=== PATIENT | female | born 1985 | race Caucasian/White ===

== ENCOUNTER 2017-03-23 09:32 | Outpatient (CLI) | payer BC ==
--- NOTE | 2017-03-23 12:12 | ULT ---
OB ULTRASOUND: Date: 03-23-17 History: Positive . Evaluate anatomy. FINDINGS: There is a single intrauterine gestation in cephalic presentation. Cardiac doppler demonstrates heart tones with a heart rate of 155 beats/minute. The placenta is located posteriorly and is low lying versus marginal placenta previa. Cervical length measures 3.3 cm. Subjectively, there is a normal amount of amniotic fluid. measurements: BPD 3.83 cm 17 weeks 5 days HC 14.41 cm 17 weeks 4 days AC 13.37 cm 18 weeks 6 days FL 2.49 cm 17 weeks 4 days The estimated gestational age by ultrasound is 17 weeks 5 days, with an VANESSA of 5-3-18. Gestational ag e by the last menstrual period is 18 weeks 1 day. Estimated weight is 226 grams (8 oz). This represents 45th percentile for weight. Cerebellum and visualized portions of the spine demonstrate a normal sonographic appearance. Th ere is probably four-chamber heart although this is difficult to definitely evaluate. facial st ructures are mostly obscured due to positioning. The stomach and bilateral kidneys demonstrate a normal sonographic appearance. There is a normal cord insertion. Definite three vessel cord is not delineated. Urinary bladder is also decompressed and not well evaluated on this exam. Otherwise, no d efinitive anomalies are appreciated. IMPRESSION: 1. Low lying versus marginal placenta previa. Follow up evaluation in 4-6 weeks is recommended. 2. Single intrauterine gestation in cephalic presentation with heart tones documented. Estimate d gestational age by ultrasound is 17 weeks 5 days with an VANESSA 5-3-18. 3. Estimated weight is 226 grams (8 oz). 4. No definite anomalies are seen. Some of the anatomical structures are not well evaluat ed as described above. POS: [facility]
== END 2017-03-23 09:33 | disposition home or self-care (01) ==
LOC: ULT 09:32
PROVIDERS: ATTEND Family Medicine
DX: Z34.92 Encounter for supervision of normal pregnancy, unspecified, second trimester (principal); Z3A.17 17 weeks gestation of pregnancy
CPT/HCPCS: 76805

== ENCOUNTER 2017-05-20 10:28 | Outpatient (CLI) | payer BC | END 2017-05-20 10:29 | disposition home or self-care (01) | LOC: BICULT 10:28 | PROVIDERS: ATTEND Family Medicine | DX: O44.42 Low lying placenta NOS or without hemorrhage, second trimester (principal); Z3A.25 25 weeks gestation of pregnancy | CPT/HCPCS: 76816 ==

== ENCOUNTER 2017-08-10 15:24 | Inpatient (IN) | payer BC ==
[~2017-08-10 15:24] MED LIST: Bupivacaine PF 0.5% 30 ML VIAL ONE
[2017-08-10] MEDS ORDERED: Acetaminophen 500 MG TAB PO PRN (16:11)
[2017-08-10] MEDS ORDERED: Ondansetron HCl/PF 4 MG/2 ML Vial IVP PRN (16:11)
[2017-08-10] MEDS ORDERED: LR / Pitocin 40 units/1000 ml 1,000 ML IV PRN (16:11)
[2017-08-10] MEDS ORDERED: Promethazine HCl 25 MG/ML VIAL IM PRN (16:11)
[2017-08-10] MEDS ORDERED: Ibuprofen 800 MG TAB PO PRN (16:11)
[2017-08-10] MEDS ORDERED: Misoprostol 200 MCG TAB PR PRN (16:11)
[2017-08-10] MEDS ORDERED: Acetaminophen/Codeine 30-300mg Tablet PO PRN (16:11)
[2017-08-10] MEDS ORDERED: Lidocaine 1% (PF) 30 ML VIAL SC PRN (16:11)
[2017-08-10 16:48] VITALS: BMI 35.2
[2017-08-10 17:33] LABS: Hemoglobin 13.8 g/dL (12.0-16.0); Mean Corpuscular HGB CONC 35.1 g/dL (32.0-36.0); Mean Corpuscular Hemoglobin 31.7 pg (27.0-31.0); Mean Corpuscular Volume 90.2 fl (81.0-99.0); Mean Platelet Volume 6.3 fL (7.4-10.4); Platelet Count 210 thou/uL (130-400); Red Blood Cell (RBC) Count 4.35 mill/uL (4.20-5.40); White Blood Cell (WBC) Count 9.8 thou/uL (4.8-10.8)
[2017-08-10 18:14] LABS: HBSAg Index 0.16 S/CO (0-0.99); Hep B Surf Ag Non-Reactive S/CO (NonReactive)
[2017-08-10 18:15] LABS: Syphilis Antibody Nonreactive (Nonreactive); Syphilis Antibody Index 0.04 S/CO (<1.00 Non-Reactive)
[2017-08-10] MEDS ORDERED: LR 500 ML/Oxytocin 10 units 500 ML IVPB SCH (22:15)
[2017-08-10] MEDS: Lactated Ringer's 1,000 ML IV SCH (23:10)
[2017-08-11] MEDS ORDERED: Bupivacaine 0.5% 20 ML, fentaNYL Citrate/PF 400 MCG in Sodium Chloride 0.9% 72 ML EPIDURAL SCH (03:30)
[2017-08-11] MEDS ORDERED: Ondansetron HCl/PF 4 MG/2 ML Vial IVP PRN ×2 (03:53→09:09)
[2017-08-11] MEDS ORDERED: ePHEDrine/0.9% NaCl/PF SYRINGE 50 mg/10 ml SLOW IVP PRN (03:53)
[2017-08-11] MEDS ORDERED: Naloxone HCl 0.4 mg/ml Vial IVP PRN ×2 (03:53)
[2017-08-11] MEDS ORDERED: Acetaminophen 325 MG TAB PO PRN (03:53)
[2017-08-11] MEDS ORDERED: Eucerin (Mineral Oil/Petrolatum,White) 30 gm Jar TOP PRN (03:53)
[2017-08-11] MEDS ORDERED: Lactated Ringer's 500 ML IV PRN (03:53)
[2017-08-11] MEDS ORDERED: Promethazine HCl 25 MG/ML VIAL IM PRN (03:53)
[2017-08-11] MEDS ORDERED: diphenhydrAMINE 50 MG/ML VIAL IVP PRN (03:53)
[2017-08-11] MEDS: Lactated Ringer's 1,000 ML IV SCH (03:57)
[2017-08-11] MEDS ORDERED: Fentanyl 4mcg/Marcaine 0.1% Cassette 100 ML EPIDURAL SCH (04:00)
[2017-08-11] MEDS ORDERED: Communication Order-Pharmacy FS SCH (04:00)
[2017-08-11] MEDS ORDERED: Lanolin Ointment 7 GM TUBE TOP PRN (09:09)
[2017-08-11] MEDS ORDERED: LR / Pitocin 40 units/1000 ml 1,000 ML IV SCH (09:09)
[2017-08-11] MEDS ORDERED: Benzocaine/Menthol 20-0.5% 60 ML CAN TOP PRN (09:09)
[2017-08-11] MEDS ORDERED: diphenhydrAMINE 25 MG CAP PO PRN (09:09)
[2017-08-11] MEDS ORDERED: Bisacodyl 10 MG SUPP PR PRN (09:09)
[2017-08-11] MEDS ORDERED: Preparation H Ointment 28 GM TUBE PR PRN (09:09)
[2017-08-11] MEDS ORDERED: Milk Of Magnesia 30 ML UDCUP PO PRN (09:09)
[2017-08-11] MEDS ORDERED: Prenatal Vitamin 1 TAB PO SCH (09:30)
[2017-08-11] MEDS ORDERED: Ferrous Sulfate 325 MG TAB PO SCH (09:30)
[2017-08-11] MEDS ORDERED: Docusate Calcium (SURFAK) 240 MG CAP PO SCH ×2 (09:30)
[2017-08-11] MEDS: Ibuprofen 800 MG TAB PO SCH ×2 (13:59→20:48)
[2017-08-11] MEDS: Ferrous Sulfate 325 MG TAB PO SCH (18:29)
[2017-08-11] MEDS: Docusate Calcium (SURFAK) 240 MG CAP PO SCH ×2 (20:48)
[2017-08-12] MEDS: Ibuprofen 800 MG TAB PO SCH (05:41)
[2017-08-12 05:50] VITALS: TEMP 98.3
[2017-08-12 08:07] VITALS: BP 98/65
[2017-08-12] MEDS: Ferrous Sulfate 325 MG TAB PO SCH (08:26)
[2017-08-12] MEDS: Docusate Calcium (SURFAK) 240 MG CAP PO SCH ×2 (08:27)
[2017-08-12] MEDS ORDERED: Prenatal Vitamin 1 TAB PO SCH (09:00)
== END 2017-08-12 10:30 | disposition home or self-care (01) | DRG 775 ==
LOC: L&D/OP 15:24 → L&D 15:30 → EDSTATUS 16:11 → L&D 17:01 → 3SW 08-11 11:10
PROVIDERS: ADMIT Family Medicine; ATTEND Family Medicine
PROC: 10E0XZZ Delivery of Products of Conception, External Approach (ICD-10-PCS; principal; 2017-08-11)
PROC: 3E0334Z Introduction of Serum, Toxoid and Vaccine into Peripheral Vein, Percutaneous Approach (ICD-10-PCS; 2017-08-11)
DX: O34.219 Maternal care for unspecified type scar from previous cesarean delivery (principal); Z37.0 Single live birth; Z3A.38 38 weeks gestation of pregnancy
CPT/HCPCS: 36415; 51702; 85027; 85461; 86780; 87340; 90384; 96372; J2001; J3010; J3490; J7050; J7120; S0020

== ENCOUNTER 2017-12-20 09:05 | Outpatient (CLI) | payer BC | END 2017-12-20 09:06 | disposition home or self-care (01) | LOC: BICRAD 09:05 | PROVIDERS: ATTEND Chiropractor | DX: M54.5 Low back pain (principal); M53.87 Other specified dorsopathies, lumbosacral region; M46.1 Sacroiliitis, not elsewhere classified; M79.1 Myalgia; M48.07 Spinal stenosis, lumbosacral region | CPT/HCPCS: 72100 ==

== ENCOUNTER 2019-09-26 09:33 | Outpatient (CLI) | payer BC ==
--- NOTE | 2019-09-26 13:17 | ULT ---
PELVIC ULTRASOUND: 09/26/19 HISTORY: Pelvic pain. Real time imaging of the pelvis was obtained transabdominally as well as with an endovaginal probe. T his shows a uterus measuring 4.2 x 6.2 x 8.7 cm in length. Endometrium is in the 7 mm range. Right and left adnexa are within normal limits with small follicles. DOPPLER EVALUATION WITH SPECTRAL ANALYSIS: Normal flow is shown to the adnexa. No free fluid. IMPRESSION: Essentially unremarkable pelvic ultrasound. POS: [facility]
== END 2019-09-26 09:34 | disposition home or self-care (01) ==
LOC: BICULT 09:33
PROVIDERS: ATTEND Family Medicine
DX: R10.2 Pelvic and perineal pain (principal)
CPT/HCPCS: 76856

== ENCOUNTER 2024-05-09 09:53 | Outpatient (CLI) | payer BC | END 2024-05-09 09:54 | disposition home or self-care (01) | LOC: BICRAD 09:53 | PROVIDERS: ATTEND Nurse Practitioner Family | DX: M79.672 Pain in left foot (principal) ==